=== PATIENT | male | born 1960 | race Caucasian/White ===

== ENCOUNTER 2025-03-21 15:35 | Emergency (ER) | payer MEDICARE, SELFPAY ==
--- OUTSIDE RECORDS SUMMARY | 2024-08-27 03:45 | XMS_ITS | Continuity of Care Document ---
Author Organization [facility] Address [address] [address] [place] [address] Phone Care Team Providers Care Automotive Service Director Name Role Phone Anson ARMSTRONG, Guerda Unavailable Unavailable Allergies, Adverse Reactions, Alerts Substance Reaction Status Criticality fluoxetine Diarrhea Active No Information erythromycin base Diarrhea Active No Informa tion Medications Medication Instructions Dosage Effective Dates (start - stop) Status Comments famotidine 20 mg tablet take 1 tablet by oral route every day 20 MG - Active famotidine 20 mg tablet take 1 tablet by oral route 2 times every day 20 MG - Active propranolol 10 mg tablet take 2 tablet by oral route 3 times every day as needed 20 MG - Active lisinopril 5 mg tablet take 1 tablet by oral route every day 5 MG - Active clonazepam 0.5 mg tablet take 1 tablet by ORAL route every day as needed 0.5 MG - Active atorvastatin 20 mg tablet take 1 tablet by oral route every day 20 MG - Active Procedures Procedure Date Offic/outpt E&m Estab Minor Offic/outpt E&m New Mod Sever Colonoscopy Flex; Dx (sep Pro) 21 Advance Directives Directive Yes / No Effective Date File Name No Information Encounters Encounter Description Practice Location Reason(s) For Visit Diagnoses Date Provider Providers Copied on Encounter Offic/outpt E&m Estab [facility], [address] [address], [place], [id number], [place] tel:[phone] [facility] GI Symptoms or Concerns (chief complaint) Dyspepsia 5 Anson FINISH SPECIALIST Guerda. [address] [facility], [address], [id number], [place]. [phone] Referring Provider: Referral Self, USE FOR SELF REFERRALS. Offic/outpt E&m New Mod Sever [facility], [address] [address], [place], [place], [id number], [place] tel:[phone] [facility] GI Symptoms or Concerns (chief complaint) Excessive gasBurping 5 Anson FINISH SPECIALIST Guerda. [address] [facility], [facility] [address], [place], [id number], [place]. [phone] Referring Provider: Referral Self, USE FOR SELF REFERRALS. [facility], [address] [address], [place], [place], [id number], [place] tel:[phone] [facility] No Information 5 Ambrocio Perry. [address] [facility], [address], [id number], [place]. [phone] [facility], [address] [address], [place], [place], [id number], [place] tel:[phone] [facility] Diverticulosis of colon without diverticulitis Colon cancer screeningEncou nter for screening for malignant neoplasm of colon 1 No Information Referring Provider: Watson Parra MD [facility], [address] [place] [address], [address]. tel:[phone] [facility], [address] [address], [place], [id number], [place] tel:[phone] [facility] No Information 1 Asher Silveira. [address] [facility], [facility] [address], [place], [id number], [place]. tel:[phone] Family History Family Member Type Diagnosis Age At Onset Mother Problem (finding) gallbladder disease Father Problem (finding) Mother Problem (finding) diverticulitis of colon Mother Problem (finding) Irritable bowel syndrom e Immunizations Vaccine Date Status Comments SARS-COV-2 (COVID-19) vaccin e, mRNA, spike protein, LNP, preservative free, 50 mcg/0.5 mL dose administered Note: [facility] bi-direct ional interface ; Source: Other Registry Influenza administered Note: [facility] bi-directional interface ; Source: Other Registry SARS-COV-2 (COVID-19) vaccin e, mRNA, spike protein, LNP, preservative free, 50 mcg/0.5 mL dose administered Note: [facility] bi-direct ional interface ; Source: Other Registry Influenza, [place] Kidney, subunit, quadrivalent, injectable, preservative free administered Note: [facility] bi-directional interface ; Source: Other Registry zoster vaccine recombinant administered N ote: [facility] bi-directional interface ; Source: Other Registry Afluria Qd administered Note: M [facility] bi-directional interface ; Source: Other Registry SARS-COV-2 (COVID-19) vaccin e, mRNA, spike protein, LNP, preservative free, 100 mcg/0.5mL dose or 50 mcg/0.25mL dose administered Note: [facility] bi -directional interface ; Source: Other Registry SARS-COV-2 (COVID-19) vaccin e, mRNA, spike protein, LNP, preservative free, 30 mcg/0.3mL dose administered Note: [facility] bi-direct ional interface ; Source: Other Registry Afluria Qd administered Note: M [facility] bi-directional interface ; Source: Other Registry SARS-COV-2 (COVID-19) vaccin e, mRNA, spike protein, LNP, preservative free, 30 mcg/0.3mL dose administered Note: [facility] bi-direct ional interface ; Source: Other Registry SARS-COV-2 (COVID-19) vaccin e, mRNA, spike protein, LNP, preservative free, 30 mcg/0.3mL dose administered Note: [facility] bi-direct ional interface ; Source: Other Registry Afluria Qd administered Note: M [facility] bi-directional interface ; Source: Other Registry tetanus toxoid, reduced diphtheria toxoid, and acellular pertussis vaccine, adsorbed administered Note: [facility] b i-directional interface ; Source: Other Registry Afluria Qd administered Note: [facility] bi-directional interface ; Source: Other Registry Afluria Qd administered Note: M [facility] bi-directional interface ; Source: Other Registry Afluria Qd administered Note: M [facility] bi-directional interface ; Source: Other Registry Afluria Qd administered Note: M [facility] bi-directional interface ; Source: Other Registry Afluria Qd administered Note: M [facility] bi-directional interface ; Source: Other Registry Afluria Qd administered Note: M [facility] bi-directional interface ; Source: Other Registry Afluria Qd administered Note: M [facility] bi-directional interface ; Source: Other Registry Afluria Qd administered Note: M [facility] bi-directional interface ; Source: Other Registry Afluria Qd administered Note: M [facility] bi-directional interface ; Source: Other Registry Afluria Qd administered Note: M [facility] bi-directional interface ; Source: Other Registry Afluria Qd administered Note: M [facility] bi-directional interface ; Source: Other Registry Afluria Qd administered Note: M [facility] bi-directional interface ; Source: Other Registry Afluria Qd administered Note: M [facility] bi-directional interface ; Source: Other Registry Influenza administered Note: [facility] bi-d irectional interface ; Source: Other Registry Influenza, split virus, trivalent, injectable, contains preservative administered Note: [facility] bi-direct ional interface ; Source: Other Registry Influenza, seasonal, injectable administe red Note: [facility] bi- directional interface ; Source: Other Registry Influenza, live, trivalent, intranasal administered Note: [facility] bi-direct ional interface ; Source: Other Registry tetanus toxoid, reduced diphtheria toxoid, and acellular pertussis vaccine, adsorbed administered Note: [facility] b i-directional interface ; Source: Other Registry influenza virus vaccine, donna e, attenuated, for intranasal use administered Note: [facility] C bi- directional interface ; Source: Other Registry Influenza, live, trivalent, intranasal administered Note: [facility] bi-direct ional interface ; Source: Other Registry influenza virus vaccine, donna e, attenuated, for intranasal use administered Note: [facility] C bi- directional interface ; Source: Other Registry Influenza, split virus, trivalent, injectable, contains preservative administered Note: [facility] bi-direct ional interface ; Source: Other Registry Influenza, seasonal, injectable administe red Note: [facility] bi- directional interface ; Source: Other Registry tetanus and diphtheria toxoi ds, adsorbed, preservative free, for adult use (2 Lf of tetanus toxoid and 2 Lf of diphtheria toxoid) administered Note: [facility] bi-direct ional interface ; Source: Other Registry Payers Payer name Insurance type Covered libertarian ID Authoriza tirosi(s) Blue Cross Medicare Advantage [id number] Social History Type Description Quantity Date Captured Comments Alcohol Use Details Caffeine Use Details Unknown Tobacco Use Status undefined Smoking Status undefined Non-Smoking Tobacco Use Details : No Details Available : No Details Available Sex Male Vital Signs Date / Time: Height Weight BMI Pulse Rate Blood Pressure Temperature Respiratory Rate Body Surface Area Head Circumference Head Circ. Percentile Wt./Brian. Percentile BMI percentile Pulse Ox Inhaled Ox 8:30 AM 72.00 in 80.286 kg (177.00 lbs) 24.0 1 kg/m eter (2) Chief Complaint And Reason For Visit From encounter dated '08/27/2024 08:45'. GI Symptoms or Concerns (chief complaint). Description: Jack Huynh is a 64 year old male with a history of hyperlipidemia and anxiety who presents as a follow- up of dyspepsia, gas and burping.Patient has been seen at [facility], last 09/2020 for colonoscopy which showed mild diverticulosis of the sigmoidcolon but otherwise normalPatient initially presented in clinic 07/15/2024 with complaints of increas ed gas and burping primarily occurring after lunch. States this will occur right after eating lunchand will improve 2 hours later. Can occur intermittently after dinner as well but not frequently. Denies any abdominal pain, heartburn or reflux symptoms but has found that the increased burping can be quite obnoxious. He has cut back on caffeine which has improved his symptoms. Has also tried going lactose and dairy free but did not find it helpful. States that he was also trialed on a PPI a year or 2 ago, but found that it dried him out and therefore stopped taking it. He does find that antacids help his symptoms as well as Gas-X. Reports a history of anxiety and finds that the symptoms are worse when he is more anxious. His anxiety has increased since retiring. He has been on a few different antidepressants however has stopped them due to side effects. He is currentlytrying to get set up for CBT therapy. Underwent stool testing for H. pylori as well as some lab testing in 2022 and in 2020 which were reportedly negative. He has not had any changes in his bowel habits and states he will have 1-2 formed BMs per day with complete emptying. Patient presents in clinic today stating that he did approximately 4 weeks of Pepcid twice per day which she found extremely helpful and did not have any more leakage strain of the stomach and dyspepsia after eating lunch. Herecently decreased down to Pepcid once per day and is continue to see an improvement in his symptoms. Also states that he will be starting CBT therapy soon and hopes to see if this is potentially playing into his symptoms. Continues to deny hematochezia, melena, nausea, vomiting, fever, chills, andunintentional weight loss.Social history: Denies tobacco and THC/marijuana use. Drinks alcohol on social occasions but rarely has more than 6 drinks in a week.Family history: Mother with diverticulitis and stomach issues. No other known family history gastrointestinal issues or malignancy. Reason For Referral Reason For Referral No Information History Of Present Illness Encounter Date Complaint History Of Audie minaya Illness GI Symptoms or Concerns Jack dean is a 64 year old male with a history of hyperlipidemia and anxiety who presents as a follow-up of dyspepsia, gas and burping.Patient has been seen at [facility], last 09/2020 for colonoscopy which showed mild diverticulosis of the sigmoid colon but otherwise normalPatient initially presented in clinic 07/15/2024 with complaints of increased gas and burping primarily occurring after lunch. States this will occur right after eating lunch and will improve 2 hours later. Can occur intermittently after dinner as well but not frequently. Denies any abdominal pain, heartburn or reflux symptoms but has found that the increased burping can be quite obnoxious. He has cut back on caffeine which has improved his symptoms. Has also tried going lactose and dairy free but did not find it helpful. States that he was also trialed on a PPI a year or 2 ago, but found that it dried him out and therefore stopped taking it. He does find that antacids help his symptoms as well as Gas-X. Reports a history of anxiety and finds that the symptoms are worse when he is more anxious. His anxiety has increased since retiring. He has been on a few different antidepressants however has stopped them due to side effects. He is currently trying to get set up for CBT therapy. Underwent stool testing for H. pylori as well as some lab testing in 2022 and in 2020 which were reportedly negative. He has not had any changes in his bowel habits and states he will have 1-2 formed BMs per day with complete emptying. Patient presents in clinic today stating that he did approximately 4 weeks of Pepcid twice per day which she found extremely helpful and did not have any more leakage strain of the stomach and dyspepsia after eating lunch. He recently decreased down to Pepcid once per day and is continue to see an improvement in his symptoms. Also states that he will be starting CBT therapy soon and hopes to see if this is potentially playing into his symptoms. Continues to deny hematochezia, melena, nausea, vomiting, fever, chills, and unintentional weight loss.Social history: Denies tobacco and THC/marijuana use. Drinks alcohol on social occasions but rarely has more than 6 drinks in a week.Family history: Mother with diverticulitis and stomach issues. No other known family history gastrointestinal issues or malignancy. GI Symptoms or Concerns Jack dean is a 64 year old male with a history of hyperlipidemia and anxiety who presents as a new patient consult requested by Watson Parra MD for evaluation of gas and burping.Patient has been seen at [facility], last 09/2020 for colonoscopy which showed mild diverticulosis of the sigmoid colon but otherwise normalPatient is in clinic today stating that he has had some issues with increased gas and burping that seems to occur primarily after lunch. States this will occur right after eating lunch and will improve 2 hours later. Can occur intermittently after dinner as well but not frequently. Denies any abdominal pain, heartburn or reflux symptoms but has found that the increased burping can be quite obnoxious. He has cut back on caffeine which has improved his symptoms. Has also tried going lactose and dairy free but did not find it helpful. States that he was also trialed on a PPI a year or 2 ago, but found that it dried him out and therefore stopped taking it. He does find that antacids help his symptoms as well as Gas-X.Reports a history of anxiety and finds that the symptoms are worse when he is more anxious. His anxiety has increased since retiring. He has been on a few different antidepressants however has stopped them due to side effects. He is currently trying to get set up for CBT therapy. Underwent stool testing for H. pylori as well as some lab testing in 2022 and in 2020 which were reportedly negative. He has not had any changes in his bowel habits and states he will have 1-2 formed BMs per day with complete emptying. Denies any feelings of abdominal bloating, nausea/vomiting, change in bowel habits, hematochezia, melena, fever, chills, and unintentional weight lossSocial history: Denies tobacco and THC/marijuana use. Drinks alcohol on social occasions but rarely has more than 6 drinks in a week.Family history: Mother with diverticulitis and stomach issues. No other known family history gastrointestinal issues or malignancy Functional Status Date Functional Assessmen t No Information Instructions Date Instruction Additional Infor perlaadrianna - Continue to take f amotidine 20 mg daily- Follow up as needed pending how your CBT therapy goesHOW TO REACH MEYou can reach me by sending a message through your patient portal or calling my patient coordinator at [phone] ext. [phone] Related to Dyspepsia - Trial pepcid (famo tidine) twice per day for 1 month to see if it improves your symptoms- Continue taking gas-x as needed- Trial increasing water to 64 oz per day- Follow up in 6 weeksHOW TO REACH MEYou can reach me by sending a message through your patient portal or calling my patient coordinator at [phone] ext. [phone] Related to Excessive gas Assessments Type Assessment Date assessment Dyspepsia impression Jack Huynh is a 64 year old male with a history of hyperlipidemia and anxiety who presents as a follow-up of gas and burping. Initially presented with complaints of excess gas and burping occurring after lunch. Would occur immediately after eating and improve approximately 2 hours later. Also would have intermittent symptoms in the evening and at night but not as frequent. Was placed on Pepcid 20 mg twice daily for 1 month with a significant improvement in all of his symptoms including gas and burping. States he can have intermittent feelings of excess gas however states this occurs very infrequently at this point and is very happy with his improvement.Patient hopes to see how he improves with CBT therapy as anxiety likely a contributing factor to some of his symptoms. Discussed the ideal to have him continue the Pepcid daily while come pleading CBT therapy and then afterwards could consider weaning off of the Pepcid. Patient is agreement with this plan. Mental Status Date Cognitive Assessment Orientation - [place] ed to time, place, person, situation. Patient Care Teams Name Effective Dates (start - stop) Status Members No Information
--- OUTSIDE RECORDS SUMMARY | 2024-08-27 03:45 | XMS_ITS | Continuity of Care Document ---
Author Organization [facility] Address [address] [address] [place] [address] Phone Care Team Providers Care Plate Printer Name Role Phone Anson ARMSTRONG, Guerda Unavailable [...] [facility], [address] [address], [place], [id number], [place] tel:[phone] [facility] GI Symptoms or Concerns (chief complaint) Dyspepsia 5 Anson PLASTIC PARTS FABRICATOR Guerda. [address] [facility], [address], [id number], [place]. [phone] Referring Provider: Referral Self, USE FOR SELF REFERRALS. Offic/outpt E&m New Mod Sever [facility], [address] [address], [place], [place], [id number], [place] tel:[phone] [facility] GI Symptoms or Concerns (chief complaint) Excessive gasBurping 5 Anson PLASTIC PARTS FABRICATOR Guerda. [address] [facility], [facility] [address], [place], [id number], [place]. [phone] Referring Provider: Referral Self, USE FOR SELF REFERRALS. [facility], [address] [address], [place], [place], [address], [place] tel:[phone] [facility] No Information 5 Ambrocio Perry. [address] [facility], [address], [id number], [place]. [phone] [facility], [address] [address], [place], [place], [id number], [place] tel:[phone] [facility] Diverticulosis of colon without diverticulitis Colon cancer screeningEncou nter for screening for malignant neoplasm of colon 1 No Information Referring Provider: Watson Parra MD [facility], [address] [place] [address], [address]. tel:[phone] [facility], [address] [address], [place], [place], [id number], [place] tel:[phone] [facility] No Information 1 Asher Silveira. [address] [facility], [facility] [address], [place], [id number], [place]. tel:[phone] Family History Family Member Type Diagnosis Age [...] interface ; Source: Other Registry Influenza, [place] Kidney, subunit, quadrivalent, injectable, preservative [...] Registry Payers Payer name Insurance type Covered alliance party ID Authoriza tirosi(s) Blue Cross Medicare Advantage [id number] Social History Type Description Quantity Date [...] gas and burping.Patient has been seen at [facility], last 09/2020 for colonoscopy which showed mild [...] gas and burping.Patient has been seen at [facility], last 09/2020 for colonoscopy which showed mild [...] gas and burping.Patient has been seen at [facility], last 09/2020 for colonoscopy which showed mild [...] portal or calling my patient coordinator at [phone] ext. [phone] Related to Dyspepsia - Trial pepcid (famo tidine) twice per day for 1 month to see if it improves your symptoms- Continue taking gas-x as needed- Trial increasing water to 64 oz per day- Follow up in 6 weeksHOW TO REACH MEYou can reach me by sending a message through your patient portal or calling my patient coordinator at [phone] ext. [phone] Related to Excessive gas Assessments Type Assessment [...] Mental Status Date Cognitive Assessment Orientation - [place] ed to time, place, person, situation. Patient Care Teams Name Effective Dates (start - stop) Status Members No Information
[2025-03-21 15:50] VITALS: BP 192/115; PULSE 63; RESP 16; TEMP 37.2; O2SAT 97; BMI 25.2
--- NOTE | 2025-03-21 16:17 | CRLHL7_ITS ---
For Patients: As a result of the Century Cures Act, medical imaging exams and procedure reports are released immediately into your electronic medical record. You may view this report before your referring provider. If you have questions, please contact your health care provider. INDICATION: Headaches. Nosebleed for a week. High blood pressure. TECHNIQUE: [place] CT cuts were performed through the paranasal sinuses. The images were formatted in the sagittal, axial and coronal planes. COMPARISON: None. FINDINGS: There is a very large amount debris within the nasopharynx and the posterior aspect of the nasal cavities more so on the right with intermixed air likely representing clotted blood. Although not likely, the presence of an underlying nasopharyngeal mass cannot be excluded based on these images. There is no mucosal abnormality within the paranasal sinuses. The nasal septum deviates slightly to the right of midline with a bony nasal septal spur directed to the right. The orbits appear normal. There is abundant streak artifact arising from dental amalgam. The middle ear cavities and mastoid air cells are normally aerated. The visualized brain appears normal. Impression : There is a very large amount debris with intermixed air within the nasopharynx and the posterior aspect of the nasal cavities more so on the right that represents a large amount of clotted blood. Although not likely, the presence of an underlying nasopharyngeal mass cannot be excluded based on these images. Please note that all CT scans at this facility use dose modulation, iterative reconstruction, and/or weight-based dosing when appropriate to reduce radiation dose to as low as reasonably achievable. Dictated by Alexis Juarez MD @ 03/21/2025 4:57:15 PM (Electronically Signed)
--- NOTE | 2025-03-21 16:17 | ED.GENADULT ---
HPI - General Adult General Chief complaint: Hypertension Stated complaint: high bp and bloody nose Time Seen by Provider: 03/21/25 15:57 History of Present Illness HPI narrative: This 64-year-old male comes in with his daughter because of recurrent nose bleeds and splitting headaches. He states that this is been recurring daily over the past week or so. He does not report any lightheadedness or shortness of breath. He does have some blurry vision at times. He does not have any neurologic deficits or other visual changes. He states that he does get headaches and usually he can treat them successfully with Excedrin migraine [id number]. He states that he wakes up in the morning typically and has a significant headache and when he sits up his nose begins to bleed. He reports that he feels better after with as nose has been bleeding for a while and stopped. Related Data Home Medications ?Medication ?Instructions ?Recorded ?Confirmed lisinopril 10 mg tablet 10 mg PO DAILY 03/21/25 03/21/25 Previous Rx's ?Medication ?Instructions ?Recorded lisinopril 10 1 tab PO DAILY #30 tabs 03/21/25 mg-hydrochlorothiazide 12.5 mg tablet Allergies Allergy/AdvReac Type Severity Reaction Status Date / Time No Known Drug Allergies Allergy Verified 03/21/25 15:52 Review of Systems Status of ROS: Reports: 10 or more systems reviewed and unremarkable except as noted in History and below Narrative: Constitutional: No fevers, no weight gain or loss. Eyes: No discharge. No vision changes. HENT: No congestion, no sore throat, no ear pain. Recurrent nose bleeds. Cardiovascular: No chest pain, no palpitations. Respiratory: No shortness of breath, no wheezes, no cough. Gastrointestinal: No abdominal pain, no vomiting, no diarrhea. Genitourinary: No dysuria, no hematuria. Musculoskeletal: Normal range of motion. Skin: No rashes, no pruritis. Neurological: No dizziness, weakness, sensory change, speech change. Endo/Heme/Allergies: No bruising or bleeding. No polydipsia. Pysch: no suicidality, no anxiety, no insomnia. All other systems reviewed and are negative. PFSH PFSH Social History Smoking Status: Never smoker Do you use any of these nicotine containing products: None Second hand tobacco smoke exposure: No How often do you have a drink containing alcohol: never How often do you have six or more drinks on one occasion: Never AUDIT-C Alcohol total score: 0 Non-prescribed substance use: denies use service: No Exam Narrative: Exam Narrative: Constitutional: Well-developed, well-nourished, no acute distress. HEENT: Normocephalic, atraumatic. Bright red blood in the anterior right nostril. Neck: Normal range of motion. Nontender. Supple. Heart: Regular. No murmurs. Normal rate. Intact distal pulses. Lungs: Clear to auscultation. No chest discomfort. No wheezes, rhonchi, or rales. Abdomen: Normal bowel sounds. Nontender. No rebound tenderness. Genitalia: Deferred. Back: No midline tenderness. Normal range of motion. Extremities: Normal range of motion. No injury. Skin: Intact. No rash. Warm. No erythema or pallor. Neurologic: No altered sensation. No weakness. Alert and oriented. Psychiatric: No suicidality. No anxiety or depression. No insomnia. Nursing notes and vitals signs are reviewed. Const: Vital Signs, click to edit/add: Vital Signs - 24 hr 03/21/25 15:50 Temperature 98.9 F Pulse Rate [Pulse Oximeter] 63 Respiratory Rate 16 Blood Pressure [Ri ght Upper Arm] 192/115 H Pulse Oximetry 97 Oxygen Delivery Me thod Room Air Course Vital Signs Vital signs: Initial Vital Signs Temperature 98.9 F 03/21/25 15:50 Temperature Source Temporal Artery Scan 03/21/25 15:50 Pulse Rate 63 03/21/25 15:50 Respiratory Rate 16 03/21/25 15:50 Blood Pressure 192/115 H 03/21/25 15:50 Blood Pressure Mean 140 H 03/21/25 15:50 Blood Pressure Position Sitting 03/21/25 15:50 Pulse Oximetry 97 03/21/25 15:50 Oxygen Delivery Method Room Air 03/21/25 15:50 Vital Signs Temperature 98.9 F 03/21/25 15:50 Pulse Rate 63 03/21/25 15:50 Respiratory Rate 16 03/21/25 15:50 Blood Pressure 192/115 H 03/21/25 15:50 Pulse Oximetry 97 03/21/25 15:50 Oxygen Delivery Method Room Air 03/21/25 15:50 Temperature 98.9 F 03/21/25 15:50 Pulse Rate 63 03/21/25 15:50 Respiratory Rate 16 03/21/25 15:50 Blood Pressure 192/115 H 03/21/25 15:50 Pulse Oximetry 97 03/21/25 15:50 Oxygen Delivery Method Room Air 03/21/25 15:50 Medications Administered Medications: Discontinued Medications Generic Name Dose Route Start Last Admin Trade Name Jose Juan PRN Reason Stop Dose Admin Oxymetazoline HCl 1 spray 03/21/25 16:16 03/21/25 16:25 Oxymetazoline 0.05% Nasal [place] NOSTRIL-R 03/21/25 16:17 1 spray ONCE ONE Administration Tranexamic Acid 1,000 mg 03/21/25 16:46 03/21/25 16:55 Tranexamic Acid 100 Mg/Ml Inj TOPICAL 03/21/25 16:47 1,000 mg ONCE ONE Administration Medical Decision Making MDM Narrative Medical decision making narrative: This patient comes in with recurrent bloody noses and he reports headaches which she has had a times in the past. He also expressed some concern about his blood pressure. I did describe criteria for diagnosing and treating blood pressure. His recurrent epistaxis may be exacerbated with blood pressure and his use of Excedrin migraine to treat headaches. I did apply a nasal clamp after instilling Afrin but this did not stop the bleeding. There may have been a bit of a posterior component. I then soaked a cotton with TXA and packed that into his right nostril in this provided appropriate assess a gillespie of bleeding. I did obtain a CT scan of the sinuses an aside from blood in the nose there is no other findings that are remarkable. The patient is okay to be discharged home. He did not want anything to treat his headache. I did provide a prescription for lisinopril hydrochlorothiazide. He is moving into this area to be closer with family and will follow-up with a primary physician. Imaging Data CT Sinuses: Radiologist's impression: There is a very large amount debris with intermixed air within the nasopharynx and the posterior aspect of the nasal cavities more so on the right that represents a large amount of clotted blood. Although not likely, the presence of an underlying nasopharyngeal mass cannot be excluded based on these images. Discharge Plan Discharge Clinical Impression: Anterior epistaxis, Headache, Hypertension Patient Disposition: Home, Self-Care Condition: Improved Additional Instructions: take blood pressure medicine as prescribed. Use nasal clamp and Afrin if rebleeding occurs. Follow up with MD for ongoing management or return if worsening. Prescriptions: New lisinopril-hydrochlorothiazide 10-12.5 mg tablet 1 tab PO DAILY Qty: 30 2RF No Action lisinopril 10 mg tablet 10 mg PO DAILY Stand Alone Forms: [employer] Info Instructions
[2025-03-21] MEDS: OXYMETAZOLINE 0.05% NASAL SPRAY 1 SPRAY NOSTRIL-R (16:25)
[2025-03-21] MEDS: TRANEXAMIC ACID 100 MG/ML INJ 1000 MG TOPICAL (16:55)
[2025-03-21 17:42] VITALS: BP 152/74; PULSE 71
== END 2025-03-21 17:44 | disposition home or self-care (01) ==
LOC: ED 17:28
PROVIDERS: Emergency Provider Emergency Medicine Emergency Medical Services; PCP Family Medicine
DX: R51.9 Headache, unspecified (principal); R04.0 Epistaxis; I10 Essential (primary) hypertension
CPT/HCPCS: 70486; 99284

== ENCOUNTER 2025-04-09 08:44 | Outpatient (CLI) | payer MEDICARE, SELFPAY ==
--- NOTE | 2025-04-09 09:00 | CRLHL7_ITS ---
For Patients: As a result of the Century Cures Act, medical imaging exams and procedure reports are released immediately into your electronic medical record. You may view this report before your referring provider. If you have questions, please contact your health care provider. Indication: Follow up nodule Technique: Noncontrast CT chest Please note that all CT scans at this facility use dose modulation, iterative reconstruction, and/or weight-based dosing when appropriate to reduce radiation dose to as low as reasonably achievable. Comparison: 04/10/2017 Findings: Small bilateral nodules are similar bilaterally. No new nodules. Mild scarring in the posterior right lung. No infiltrate or edema. No effusion or pneumothorax. Visualized thyroid appears unremarkable. Aortic arch is similar. Coronary artery calcifications. Incidental simple cyst right kidney. No fracture. Impression: Stable small bilateral pulmonary nodules. No suspicious findings. Please note that all CT scans at this facility use dose modulation, iterative reconstruction, and/or weight-based dosing when appropriate to reduce radiation dose to as low as reasonably achievable. Dictated by Kelton Zamorano MD @ 04/09/2025 9:35:13 AM (Electronically Signed)
== END 2025-04-09 08:45 | disposition home or self-care (01) ==
LOC: CT 08:45
PROVIDERS: PCP Family Medicine; Visit Provider Family Medicine
DX: R91.8 Other nonspecific abnormal finding of lung field (principal); F17.210 Nicotine dependence, cigarettes, uncomplicated; I77.810 Thoracic aortic ectasia
CPT/HCPCS: 71250; 93306

== ENCOUNTER 2025-05-24 07:44 | Outpatient (CLI) | payer MEDICARE, SELFPAY ==
--- NOTE | 2025-05-24 09:15 | P.ANES_ITS ---
Anesthesia Charges Start Date/Time Anesthesia Start Date: 05/24/25 Anesthesia Start Time: 08:55 Stop Date/Time Anesthesia Stop Date: 05/24/25 Anesthesia Stop Time: 09:33 Coding CPT Codes CPT Codes: JAG LWR INTST NDSC NOS - 92690 ([id number]) QK - BIOLOGY PROFESSOR 2-4 CNCRNT JAG PROC, QX - VACATION SALES ADVISOR SVC W/ MD MED DIRECTION, P2 - PATIENT W/MILD SYST DISEASE
--- NOTE | 2025-05-24 09:15 | W.ANESCHARGE ---
Anesthesia Charges Start Date/Time Anesthesia Start Date: 05/24/25 Anesthesia Start Time: 08:55 Stop Date/Time Anesthesia Stop Date: 05/24/25 Anesthesia Stop Time: 09:33 Coding CPT Codes CPT Codes: JAG LWR INTST NDSC NOS - 65377 ([id number]) QK - PRESCHOOL EDUCATION DIRECTOR 2-4 CNCRNT JAG PROC, QX - VISITOR INFORMATION ASSISTANT SVC W/ MD MED DIRECTION, P2 - PATIENT W/MILD SYST DISEASE
--- NOTE | 2025-05-24 09:38 | P.ANES_ITS ---
Anesthesia Charges Start Date/Time Anesthesia Start Date: 05/24/25 Anesthesia Start Time: 08:55 Stop Date/Time Anesthesia Stop Date: 05/24/25 Anesthesia Stop Time: 09:33 Coding CPT Codes CPT Codes: ANES LWR INTST NDSC NOS - 95294 ([id number]) P2 - PATIENT W/MILD SYST DISEASE, QK - MEAT BONER 2-4 CNCRNT ANES PROC
--- NOTE | 2025-05-24 09:38 | W.ANESCHARGE ---
Anesthesia Charges Start Date/Time Anesthesia Start Date: 05/24/25 Anesthesia Start Time: 08:55 Stop Date/Time Anesthesia Stop Date: 05/24/25 Anesthesia Stop Time: 09:33 Coding CPT Codes CPT Codes: ANES LWR INTST NDSC NOS - 73728 ([id number]) P2 - PATIENT W/MILD SYST DISEASE, QK - MANAGER SECURITY 2-4 CNCRNT ANES PROC
== END 2025-05-24 07:45 | disposition home or self-care (01) ==
LOC: OP CLINIC 07:44
PROVIDERS: PCP Family Medicine; Visit Provider Surgery
DX: Z12.11 Encounter for screening for malignant neoplasm of colon (principal); D12.0 Benign neoplasm of cecum; D12.2 Benign neoplasm of ascending colon; D12.3 Benign neoplasm of transverse colon; K57.30 Diverticulosis of large intestine without perforation or abscess without bleeding
CPT/HCPCS: 00811; 00812; 45385; J2704